=== PATIENT | male | born 1955 | race Hispanic/Latino ===

== ENCOUNTER 2019-08-13 10:27 | Outpatient (CLI) | payer BC, MEDICARE, SELFPAY ==
[2019-08-13 11:07] LABS: Basophils Percent Auto 0.7 % (0.2-1.2); Eosinophils Absolute Auto 0.2 K/mm3 (0-0.3); Eosinophils Percent Auto 2.6 % (0-4.4); Hematocrit 42.3 % (42.0-52.0); Hemoglobin 13.8 g/dL (14.0-18.0); Immature Granulocyte Absolute 0.01 K/mm3 (0.00-0.031); Immature Granulocyte Percent A 0.2 % (0-0.5); Lymphocytes Absolute Auto 1.32 K/mm3 (0.9-3.2); Lymphocytes Percent Auto 21.5 % (18.3-44.2); Mean Corpuscular HGB Conc 32.6 g/dl (32-36); Mean Corpuscular Hemoglobin 29.1 pg (26-34); Mean Corpuscular Volume 89.2 fl (80-100); Mean Platelet Volume 9.1 fl (7.4-10.4); Monocytes Absolute Auto 0.5 K/mm3 (0.1-0.6); Monocytes Percent Auto 7.3 % (2.6-8.5); Neutrophils Absolute Auto 4.2 K/mm3 (1.3-6.7); Neutrophils Percent Auto 67.7 % (45.5-73.1); Platelet Count Result 232 k/mm3 (150-375); Red Blood Count 4.74 M/mm3 (4.6-6.20); Red Cell Distribution Width 13.3 % (11.5-14.5); White Blood Count 6.1 K/mm3 (4.5-10.0)
[2019-08-13 11:19] LABS: Hemoglobin A1C 5.4 % (<5.7)
[2019-08-13 11:29] LABS: Alanine Aminotransferase 26 U/L (4-50); Albumin Level 4.1 g/dL (3.5-5.1); Alkaline Phosphatase 69 U/L (38-126); Aspartate Amino Transferase 24 U/L (17-59); Bilirubin,Total 0.7 mg/dL (0.2-1.3); Blood Urea Nitrogen 12 mg/dL (9-20); Calcium 8.9 mg/dL (8.4-10.2); Carbon Dioxide 25 mmol/L (22-30); Chloride 106 mmol/L (98-107); Cholesterol 195 mg/dL (0-200); Estimated Glomerular Filt Rate > 60; Glucose 100 mg/dL (75-110); HDL Direct 46 mg/dL; Potassium 4.5 mmol/L (3.4-5.0); Sodium 137 mmol/L (137-145); Triglycerides 86 mg/dL (<150)
[2019-08-13 11:40] LABS: LDL Cholesterol Direct 114 mg/dL
[2019-08-13 11:51] LABS: Add Urine Microscopic? NO; Appearance Urine Clear (Clear); Bilirubin Urine Negative (Negative); Blood Urine Negative (Negative); Color Urine Colorless (Yellow); Glucose Urine UA Negative (Negative); Ketones Urine Negative (Negative); Leukocyte Esterase Ur Negative LEU/UL (Negative); Nitrate Urine Negative (Negative); Protein Urine Negative (Negative); Specific Grav Ur 1.005 (1.001-1.035); Urobilinogen Urine Negative mg/dL (<2.0)
[2019-08-13 11:59] LABS: Prostate Specific Antigen 1.1 ng/mL (< OR = 4.0)
[2019-08-15 14:02] LABS: Myoglobin, Urine <27 mcg/L (<28)
== END 2019-08-13 10:28 | disposition home or self-care (01) ==
PROVIDERS: PCP Internal Medicine; Visit Provider Internal Medicine
DX: R31.9 Hematuria, unspecified (principal); Z12.5 Encounter for screening for malignant neoplasm of prostate; Z79.899 Other long term (current) drug therapy
CPT/HCPCS: 36415; 80053; 80061; 81003; 83036; 83874; 84153; 84443; 85025; G0103

== ENCOUNTER 2019-08-19 13:38 | Outpatient (CLI) | payer BC, MEDICARE, SELFPAY ==
--- NOTE | ~2019-08-19 | CT_ITS ---
EXAMINATION: CT abdomen pelvis wo/w con DATE: 08/19/2019 14:35 INDICATION: Suprapubic tenderness, possible bladder mass TECHNIQUE: Computed tomography (CT) of the abdomen and pelvis was performed without intravenous contr ast. CT of the abdomen and pelvis was then performed with a total of 130 mL Omnipaque 350 intravenous contrast using a double-bolus technique for simultaneous opacification of the renal parenchyma and r enal collecting system. The dose-length product (DLP) was 2658.35 mGy-cm. Automated exposure control and iterative reconstruction technique were employed. COMPARISON: 12/26/2005 FINDINGS: The lung bases are clear. The heart size is normal. Cysts of the left hepatic lobe measure up to 9 mm. There is a small sliding hiatal hernia. The spleen, pancreas, gallbladder, and adrenal gl ands are normal. Cysts of the kidneys measure up to 1.3 cm on the right. No stones are identified in the kidneys, ureters, or bladder. There is no hydronephrosis or hydroureter. No suspicious renal or u rothelial lesion is identified. There is chronic mild right inguinal lymphadenopathy without signific ant interval change. There are bilateral inguinal hernias containing fat. There is no free intraperit rodriguez gas or evidence of bowel obstruction. There is mild lumbar spondylosis. Old right-sided rib fra ctures are noted. IMPRESSION: 1. No CT correlate for the patient's symptoms. No suspicious renal or urothelial lesion identified. 2. Bilateral inguinal hernias containing fat. 3. Mild chronic right inguinal lymphadenopathy without significant change of unclear significance. Reviewed, dictated and finalized at location A. IMPRESSION: 1. No CT correlate for the patient's symptoms. No suspicious renal or urothelia l lesion identified. 2. Bilateral inguinal hernias containing fat. 3. Mild chronic right inguinal lymphadenopathy without significant change of un clear significance.
--- NOTE | ~2019-08-19 | CT_ITS ---
EXAMINATION: CT lung screening DATE: 08/19/2019 14:35 INDICATION: Personal history of tobacco dependence, current smoker with 40 pack year history TECHNIQUE: Computed tomography (CT) of the chest was performed without intravenous contrast. The dose -length product (DLP) was 197.66 mGy-cm. Automated exposure control and iterative reconstruction tech Telecardiaque were employed. COMPARISON: 09/18/2011 FINDINGS: There is mild emphysema. No suspicious pulmonary nodules are identified. There is a chronic fissural lymph node in the minor fissure. There is no pleural effusion or pneumothorax. No pathologi leonora enlarged thoracic lymph nodes are identified. The heart size is normal. There is mild thoracic spondylosis. IMPRESSION: 1. Lung-RADS category 2: Benign appearance or behavior. Continue annual screening with noncontrast lo w-dose chest CT in 12 months. Reviewed, dictated and finalized at location A. IMPRESSION: 1. Lung-RADS category 2: Benign appearance or behavior. Continue annual screeni ng with noncontrast low-dose chest CT in 12 months.
== END 2019-08-19 13:39 | disposition home or self-care (01) ==
PROVIDERS: PCP Internal Medicine; Visit Provider Internal Medicine
DX: R31.9 Hematuria, unspecified (principal); Z87.891 Personal history of nicotine dependence; K40.20 Bilateral inguinal hernia, without obstruction or gangrene, not specified as recurrent
CPT/HCPCS: 74178; G0297; Q9967

== ENCOUNTER 2019-10-28 15:13 | Outpatient (CLI) | payer BC, MEDICARE, SELFPAY ==
--- NOTE | ~2019-10-28 | XR_ITS ---
EXAMINATION: XR shoulder LT min 2V DATE: 10/28/2019 15:45 INDICATION: Left shoulder pain TECHNIQUE: AP internally and externally rotated, AP oblique externally rotated and transscapular Y vi ews of the left shoulder were obtained. COMPARISON: None FINDINGS: Normal alignment. No fracture.Mild to moderate osteoarthritis at the glenohumeral joint with nonunif orm joint space narrowing and small marginal osteophytes about the humeral head and glenoid. There is also moderate acromioclavicular osteoarthritis. Suggestion of pseudoarthrosis formation between the coracoid process and the clavicle in the region of the coracoclavicular ligament. Soft tissues are un remarkable. The visualized portions of the lungs are clear. IMPRESSION: Moderate acromioclavicular and mild to moderate glenohumeral osteoarthritis. Reviewed, dictated and finalized at location A.
== END 2019-10-28 15:14 | disposition home or self-care (01) ==
PROVIDERS: PCP Internal Medicine; Visit Provider Nurse Practitioner Adult Health
DX: M19.012 Primary osteoarthritis, left shoulder (principal)
CPT/HCPCS: 73030

== ENCOUNTER 2020-03-29 01:44 | Outpatient (CLI) | payer BC, MEDICARE, SELFPAY ==
[2020-03-29 21:22] LABS: SARS-CoV-2 RNA PCR Negative
== END 2020-03-29 01:45 | disposition home or self-care (01) ==
LOC: ANHCOVIDDT 01:45
PROVIDERS: PCP Internal Medicine; Visit Provider Internal Medicine Gastroenterology
DX: Z01.812 Encounter for preprocedural laboratory examination (principal); Z20.828 Contact with and (suspected) exposure to other viral communicable diseases
CPT/HCPCS: 87635; C9803; U0003

== ENCOUNTER 2020-04-01 01:16 | Day surgery (SDC) | payer BC, MEDICARE, SELFPAY ==
[2020-03-26 13:27] VITALS: BMI 35.9
[2020-04-01 07:20] VITALS: BP 120/78; PULSE 66; RESP 20; TEMP 35.9; O2SAT 99; BMI 35.2
[2020-04-01] MEDS: LACTATED RINGERS 1,000 ML 150 ML IV CONT (07:24)
--- NOTE | 2020-04-01 07:28 | PM.IMHP ---
H&P: HPI History of Present Illness Date/Time: 04/01/20 07:28 Chief complaint: neoplasm screening Narrative: Reason for visit is colonoscopy. This very pleasant gentleman seen in consultation at request of the primary physician. Impression: Screening and surveillance colonoscopy. Patient's history adenomatous colon polyps. GERD with history of gastric ulcer disease. Recommendation: Colonoscopy. History: This very pleasant gentleman is negative GI review systems. He has a history adenomatous colon polyps. He is here for screening and surveillance colonoscopy. He has a history of reflux disease and gastric ulcer disease in the past. He is here for EGD. The patient does have a history of shortness of breath, dyspnea exertion and wheezing. He has a diagnosis of COPD. He recently discontinued smoking. Physical examination: General: very pleasant patient in no acute distress. HEENT: Head was normocephalic sclerae is clear mouth without masses neck was supple. Heart: Rate rhythm regular without S3 or S4. Lungs: Decreased breath sounds bilaterally. Abdomen: Soft with no guarding or rigidity. Bowel sounds were active. Neurologic: Cranial nerves 2 through 12 intact. No focal defects. No clonus. Musculoskeletal system: Revealed no joint tenderness or swelling no muscle atrophy. Extremities: Reveal no significant edema. Skin: Warm and dry with normal turgor. Mental status: intact. Patient is alert and oriented. Review of Systems Review of Systems: All systems reviewed & are unremarkable except as noted in HPI and below PMFSH Past Medical History Medical History (Updated 04/01/20 @ 07:27 by Ernst Watson DO) Adenomatous colon polyp COPD (chronic obstructive pulmonary disease) Gastric ulcer GERD (gastroesophageal reflux disease) Obesity Tobacco abuse Vitamin D deficiency Surgical History Surgical History (Updated 04/01/20 @ 07:27 by Ernst Watson DO) H/O colonoscopy H/O esophagogastroduodenoscopy Family History Family History Mother Family history of diabetes mellitus in first degree relative Social History Social History Smoking status: Current every day smoker Tobacco type: cigarettes Second hand tobacco smoke exposure: No Smoking end date: 05/14/13 Additional smoking assessment comments: CURRENTLY ON CHANTIX -DOWN TO 1 PACK FOR 2 WEEKS Alcohol intake: former Alcohol use details: AA FOR PAST 7 YEARS Substance use: unknown Living arrangements: with family Spiritual care concerns: No Meds Home Medications and Allergies Home Medications Medication Instructions Recorded Confirmed Type rosuvastatin 5 mg tablet 5 mg PO DAILY #30 tablet 02/16/20 03/26/20 Rx umeclidinium 62.5 mcg-vilanterol 1 inhalation INHALATION DAILY #60 02/16/20 03/26/20 Rx 25 mcg/actuation powdr for each inhalation oxycodone-acetaminophen 5 mg-325 1 tablet PO Q6H PRN 03/02/20 03/26/20 History mg tablet varenicline 1 mg tablet 1 mg PO BID #56 tablet 03/09/20 03/26/20 Rx nabumetone 500 mg PO DAILY 03/26/20 03/26/20 History Allergies Allergy/AdvReac Type Severity Reaction Status Date / Time No Known Allergies Allergy Verified 03/26/20 13:26 Vital Signs Vital Signs - 24 hr 04/01/20 07:20 Temperature 35.9 C L Pulse Rate 66 Respiratory Rate 20 Blood Pressure 120/78 Pulse Oximetry 99
--- NOTE | 2020-04-01 07:48 | WPDANESEPPF ---
Anes - Initial Pre Proc Eval Procedure: Operation Date: 04/01/20 08:30 Proposed Procedures p Screening Colonoscopy - Ernst Watson DO Date/Time: 04/01/20 07:48 Surgeon: Ernst Watson DO Pre Op Diagnosis: neoplasm screening Patient Data Age: 64 Gender: M Height: 5 ft 9 in Weight: 108 kg Last Vital Signs Temp 96.7 F L 04/01/20 07:20 Pulse 66 04/01/20 07:20 Resp 20 04/01/20 07:20 BP 120/78 04/01/20 07:20 Pulse Ox 99 04/01/20 07:20 Allergies Allergy/AdvReac Type Severity Reaction Status Date / Time No Known Allergies Allergy Verified 03/26/20 13:26 Home Medications Medication Instructions Recorded Confirmed Type rosuvastatin 5 mg tablet 5 mg PO DAILY #30 tablet 02/16/20 03/26/20 Rx umeclidinium 62.5 mcg-vilanterol 1 inhalation INHALATION DAILY #60 02/16/20 03/26/20 Rx 25 mcg/actuation powdr for each inhalation oxycodone-acetaminophen 5 mg-325 1 tablet PO Q6H PRN 03/02/20 03/26/20 History mg tablet varenicline 1 mg tablet 1 mg PO BID #56 tablet 03/09/20 03/26/20 Rx nabumetone 500 mg PO DAILY 03/26/20 03/26/20 History Patient hx anesthesia problems: none Family hx anesthesia problems: none PMFSH Past Medical History Medical History (Updated 04/01/20 @ 07:27 by Ernst Watson DO) Adenomatous colon polyp COPD (chronic obstructive pulmonary disease) Gastric ulcer GERD (gastroesophageal reflux disease) Obesity Tobacco abuse Vitamin D deficiency Surgical History Surgical History (Updated 04/01/20 @ 07:27 by Ernst Watson DO) H/O colonoscopy H/O esophagogastroduodenoscopy Family History Family History Mother Family history of diabetes mellitus in first degree relative Social History Social History Smoking status: Current every day smoker Tobacco type: cigarettes Second hand tobacco smoke exposure: No Smoking end date: 05/14/13 Additional smoking assessment comments: CURRENTLY ON CHANTIX -DOWN TO 1 PACK FOR 2 WEEKS Alcohol intake: former Alcohol use details: AA FOR PAST 7 YEARS Substance use: unknown Living arrangements: with family Spiritual care concerns: No Anes - Eval Final PreProcedure Day of Procedure 04/01/20 07:48 Patient weight: obese Heart: regular rate and rhythm Lungs: clear to auscultation Airway: Mallampati scale class II Neurological: alert and oriented Last oral intake: >/= 8 hours ASA classification: III Emergent: no Anesthetic plan: proceed Anesthesia type and monitoring: general GIVS and standard monitoring Informed Consent: The patient's anesthetic plan and its attendant risks and benefits were discussed with the patient/family/POA. Questions were solicited and answers provided to the satisfaction of the patient/family/POA.
[2020-04-01 08:28] VITALS: BP 84/50; PULSE 61; RESP 17; O2SAT 100
[2020-04-01 08:38] VITALS: BP 111/71; PULSE 65; RESP 20; O2SAT 97
[2020-04-01 08:48] VITALS: BP 110/77; PULSE 62; RESP 20; O2SAT 98
== END 2020-04-01 08:57 | disposition home or self-care (01) ==
PROVIDERS: PCP Internal Medicine; Visit Provider Internal Medicine Gastroenterology
PROC: 0DJD8ZZ Inspection of Lower Intestinal Tract, Via Natural or Artificial Opening Endoscopic (ICD-10-PCS; CPT 45378; principal; 2020-04-01 08:30)
DX: Z12.11 Encounter for screening for malignant neoplasm of colon (principal); D12.2 Benign neoplasm of ascending colon; K64.8 Other hemorrhoids; J44.9 Chronic obstructive pulmonary disease, unspecified; K21.9 Gastro-esophageal reflux disease without esophagitis; E55.9 Vitamin D deficiency, unspecified; F17.210 Nicotine dependence, cigarettes, uncomplicated; E66.9 Obesity, unspecified; Z68.35 Body mass index [BMI] 35.0-35.9, adult
CPT/HCPCS: 45385; 88305; J2704; J7120

== ENCOUNTER 2020-05-18 09:28 | Outpatient (CLI) | payer MEDICARE, BC, SELFPAY ==
--- NOTE | ~2020-05-18 | US_ITS ---
US scrotum doppler INDICATION: Epididymitis. Scrotal swelling. TECHNIQUE: Testicular sonogram utilizing grayscale and color Doppler FINDINGS: The testes are normal in size and appearance. No focal lesions are seen. The right testes measures 4.5 x 3.1 x 2 cm centimeters, and the left testis measures 3.7 x 3.2 x 2.1 cm cm. There is n ormal vascular flow to both testes. There is a small left epididymal cyst. There is a small left hydrocele. There is scrotal wall edema. IMPRESSION: 1. Scrotal wall edema. 2: Small left hydrocele. Reviewed, dictated and finalized at location A. ER LIQUEFIER
== END 2020-05-18 09:29 | disposition home or self-care (01) ==
PROVIDERS: PCP Internal Medicine; Visit Provider Internal Medicine
DX: N45.1 Epididymitis (principal); N43.3 Hydrocele, unspecified
CPT/HCPCS: 76870; 93976

== ENCOUNTER 2020-07-21 16:11 | Outpatient (CLI) | payer MEDICARE, SELFPAY | END 2020-07-21 16:12 | disposition home or self-care (01) | LOC: ANHCOVIDVC 16:11 | PROVIDERS: PCP Internal Medicine | DX: Z23 Encounter for immunization (principal) | CPT/HCPCS: 0001A; 91300 ==

== ENCOUNTER 2020-08-11 14:52 | Outpatient (CLI) | payer BC, SELFPAY | END 2020-08-11 14:53 | disposition home or self-care (01) | LOC: ANHCOVIDVC 14:53 | PROVIDERS: PCP Internal Medicine | DX: Z23 Encounter for immunization (principal) | CPT/HCPCS: 0002A; 91300 ==

== ENCOUNTER 2020-09-20 14:44 | Outpatient (CLI) | payer BC, MEDICARE, SELFPAY ==
--- NOTE | ~2020-09-20 | CT_ITS ---
EXAMINATION:CT lung screening DATE: 09/20/2020 15:00 INDICATION: Personal history of tobacco dependence. Current smoker with 40 pack year history. TECHNIQUE: Computed tomography (CT) of the chest was performed without intravenous contrast. Automate d exposure control and iterative reconstruction technique were employed. The dose-length product (DLP ) was 270.67 mGy-cm. COMPARISON: Chest CT 08/19/2019 FINDINGS: There is mild atelectasis bilaterally. There are a few scattered nodules measuring up to 3 mm. There is a stable 6 mm nodule at the minor fissure. No pleural effusion. The heart size is normal . No pericardial effusion. There are no pathologically enlarged lymph nodes. There is mild bilateral gynecomastia. There are cysts in the liver measuring up to 12 mm. There are old right rib fractures. There is moderate thoracic spondylosis. IMPRESSION: 1. Lung-RADS category 2: Benign appearance or behavior. Continue annual screening with noncontrast lo w-dose chest CT in 12 months. Reviewed, dictated and finalized at location B. IMPRESSION: 1. Lung-RADS category 2: Benign appearance or behavior. Continue annual screeni ng with noncontrast low-dose chest CT in 12 months.
== END 2020-09-20 14:45 | disposition home or self-care (01) ==
PROVIDERS: PCP Internal Medicine; Visit Provider Internal Medicine
DX: Z12.2 Encounter for screening for malignant neoplasm of respiratory organs (principal); Z87.891 Personal history of nicotine dependence
CPT/HCPCS: 71271

== ENCOUNTER 2021-02-14 07:24 | Emergency (ER) | payer BC, MEDICARE, SELFPAY ==
[2021-02-14] VITALS (12 sets, daily range): BP systolic 95–118; BP diastolic 53–66; PULSE 55–64; RESP 13–21; TEMP 36.7; O2SAT 97–100
--- NOTE | ~2021-02-14 | XR_ITS ---
XR chest 2V DATE: 02/14/2021 07:46 INDICATION: Chest pain, chest pressure, shortness of breath TECHNIQUE: PA and lateral views COMPARISON: 09/20/2020 CT lung screening examinations FINDINGS: Moderate bilateral pulmonary hyperinflation. No pulmonary infiltrate or consolidation, pleu ral effusion or pulmonary vascular congestion or pneumothorax is detected. Normal heart size. There is aortic tortuosity. Degenerative change of the cervical and thoracic spine . IMPRESSION: Moderate hyperinflation; no active cardiopulmonary disease Reviewed, dictated and finalized at location A.
--- NOTE | 2021-02-14 07:28 | ECG_ITS ---
Measurements Intervals [place] Rate: 60 P: 72 WV: 162 QRS: 72 QRSD: 89 T: 70 QT: 378 QTc: 379 Interpretive Statements SINUS RHYTHM NORMAL ECG Electronically Signed On 02-14-2021 15:26:20 CDT by Gurvinder Nguyen D.O.
[2021-02-14 07:47] LABS: Basophils Percent Auto 0.6 % (0.2-1.2); Eosinophils Absolute Auto 0.4 K/mm3 (0-0.3); Eosinophils Percent Auto 6.8 % (0-4.4); Hematocrit 34.6 % (42.0-52.0); Hemoglobin 11.5 g/dL (14.0-18.0); Immature Granulocyte Absolute 0.01 K/mm3 (0.00-0.031); Immature Granulocyte Percent A 0.2 % (0-0.5); Lymphocytes Absolute Auto 1.11 K/mm3 (0.9-3.2); Lymphocytes Percent Auto 17.5 % (18.3-44.2); Mean Corpuscular HGB Conc 33.2 g/dl (32-36); Mean Corpuscular Hemoglobin 30.6 pg (26-34); Mean Platelet Volume 9.2 fl (7.4-10.4); Monocytes Absolute Auto 0.7 K/mm3 (0.1-0.6); Monocytes Percent Auto 10.3 % (2.6-8.5); Neutrophils Absolute Auto 4.1 K/mm3 (1.3-6.7); Neutrophils Percent Auto 64.6 % (45.5-73.1); Platelet Count Result 243 k/mm3 (150-375); Red Blood Count 3.76 M/mm3 (4.6-6.20); White Blood Count 6.3 K/mm3 (4.5-10.0)
[2021-02-14] MEDS: ASPIRIN 81 MG CHEWABLE TABLET 324 MG PO (07:49)
--- NOTE | 2021-02-14 07:55 | PC.NURSE ---
attempted IV x 1. pt refusing 2nd attempt. wants to wait until it's an emergency .
[2021-02-14 07:56] LABS: Anion Gap 7 mmol/L (8-16); Blood Urea Nitrogen 24 mg/dL (9-20); Calcium 9.6 mg/dL (8.4-10.2); Carbon Dioxide 24 mmol/L (22-30); Chloride 106 mmol/L (98-107); Estimated CRCL calculation 71 ml/min; Estimated Glomerular Filt Rate > 60; Glucose 106 mg/dL (65-110); Sodium 137 mmol/L (137-145)
[2021-02-14 08:01] LABS: Prothrombin Time 13.5 Seconds (11.1-14.7)
[2021-02-14 08:02] LABS: Partial Thromboplastin Time 27.6 SECONDS (22.3-36.8)
[2021-02-14 08:07] LABS: Troponin I < 0.012 ng/mL (0.000-0.034)
--- NOTE | 2021-02-14 09:49 | ED.GENADULT ---
HPI - General Adult General Chief complaint: Chest Pain Stated complaint: upper abd pain Time Seen by Provider: 02/14/21 08:19 Source: patient History of Present Illness HPI narrative: Patient is a 65 y/o male complaining of chest pain starting yesterday. He states that his pain located on both side in lower chest area. He describes his pain as a cramp and feels like a muscle spasm. He rates his pain as 4/10. There is no pain radiation. There is no alleviating or exacerbating factor. He has chronic unchanged SOB which he attributed to smoking. Related Data Home Medications Medication Instructions Recorded Confirmed oxycodone-acetaminophen 5 mg-325 1 tablet PO Q6H PRN 03/02/20 09/06/20 mg tablet cholecalciferol (vitamin D3) 50 50 mcg PO DAILY 12/03/20 mcg (2,000 unit) capsule Allergies Allergy/AdvReac Type Severity Reaction Status Date / Time No Known Allergies Allergy Verified 02/14/21 07:50 Review of Systems Constitutional: Constitutional: Denies chills, Denies fever(s), Denies headache(s) and Denies weakness Eyes: Eyes: Denies blurry vision ENT: Denies headache(s) and Denies neck pain Cardiovascular: Cardiovascular: Reports chest pain and Reports dyspnea Respiratory: Respiratory: Denies cough and Reports dyspnea Gastrointestinal: Gastrointestinal: Denies abdominal pain, Denies diarrhea, Denies nausea and Denies vomiting Genitourinary: Genitourinary: Denies hematuria and Denies dysuria Musculoskeletal: Musculoskeletal: Denies back pain and Denies neck pain Neurologic: Denies headache(s) and Denies weakness [facility] Past Medical History Medical History Adenomatous colon polyp Alcoholism COPD (chronic obstructive pulmonary disease) Gastric ulcer GERD (gastroesophageal reflux disease) Nicotine dependence, unspecified, uncomplicated Obesity Osteoarthritis of left shoulder Tobacco abuse Vitamin D deficiency Surgical History Surgical History H/O colonoscopy H/O esophagogastroduodenoscopy Family History Family History Mother Family history of diabetes mellitus in first degree relative Social History Social History Tobacco type: cigarettes Second hand tobacco smoke exposure: No Smoking end date: 05/14/13 Additional smoking assessment comments: CURRENTLY ON CHANTIX -DOWN TO 1 PACK FOR 2 WEEKS Alcohol intake: never Alcohol use details: AA FOR PAST 7 YEARS Substance use: unknown Spiritual care concerns: No Exam Const: General: no acute distress and well developed Orientation/consciousness: oriented to person, oriented to place, oriented to time and patient oriented x3 HENMT: Head: normocephalic Ears: external ears normal General nose exam: Normal external nose present Eyes: General: appearance normal, both eyes and all related structures Conjunctivae: conjunctivae normal Neck: Neck: normal visual inspection and full ROM Chest: Chest palpation & inspection: normal inspection of the chest and no tenderness Resp: Effort & Inspection: normal respiratory effort Auscultation: clear to auscultation bilaterally Cardio: Rate: regular rate Rhythm: regular rhythm GI: GI Palp: No abdominal tenderness and Yes Soft to palpation Skin: General skin exam: normal color and turgor normal Neuro: General: oriented to person, oriented to place, oriented to time and patient oriented x3 Cognition (Neuro): normal cognition Extrem: General: normal to inspection, full ROM and no pedal edema Psych: Appearance: grossly normal Mental Status: mental status grossly normal Affect: normal affect Course Reevaluation(s) Reevaluation #1: Patient does not want to do repeat Troponin and CT scan. He is aware of the risks of undiagnosed conditions, which may lead to permanent disability an
--- NOTE | 2021-02-14 10:13 | PC.NURSE ---
Attempted iv x1, pt upset that he was stuck x3 when he got here. Pt noted to be difficult stick. Pt refusing ct scan and troponin at this time. EPD Informed and at bedside to inform pt that he will need to sign out ama.
--- NOTE | 2021-02-14 10:15 | PC.NURSE ---
After speaking with provider, pt still wanting to sign out ama.
== END 2021-02-14 10:20 | disposition left against medical advice (07) ==
PROVIDERS: Emergency Provider Emergency Medicine; PCP Internal Medicine
DX: R07.9 Chest pain, unspecified (principal); J44.9 Chronic obstructive pulmonary disease, unspecified; K21.9 Gastro-esophageal reflux disease without esophagitis; E66.9 Obesity, unspecified; Z68.33 Body mass index [BMI] 33.0-33.9, adult; M19.012 Primary osteoarthritis, left shoulder; E55.9 Vitamin D deficiency, unspecified; Z86.010 Personal history of colon polyps; F17.210 Nicotine dependence, cigarettes, uncomplicated
CPT/HCPCS: 36415; 71046; 80048; 84484; 85025; 85380; 85610; 85730; 93005; 99284; A9270

== ENCOUNTER 2021-05-18 19:57 | Emergency (ER) | payer BC, MEDICARE, SELFPAY ==
[2021-05-18 20:10] VITALS: BP 142/57; PULSE 70; RESP 16; TEMP 36.5; O2SAT 99
--- NOTE | 2021-05-18 20:26 | ED.SKABFB ---
HPI - Skin/Abscess/Foreign Bdy General Chief complaint: Skin/Abscess/Foreign Body Stated complaint: cyst Time Seen by Provider: 05/18/21 20:26 Source: patient Mode of arrival: ambulatory Limitations: no limitations History of Present Illness HPI narrative: Roderick Dawkins is a 65 yo male with a PMH of GERD, HTN, COPD ,alcohol abuse, who comes with a boil that is recurrent in the same area he is going to call his primary care physician in the morning to get a referral to [facility] to endocrinology because he is already using Hibiclens and trying to other lifestyle things to avoid these boils. Has had them for 40 years it is nonfluctuant at this point but is starting to be painful he is had since before . He states the Keflex works very well for him Related Data Home Medications Medication Instructions Recorded Confirmed oxycodone-acetaminophen 5 mg-325 1 tablet PO Q6H PRN 03/02/20 03/14/21 mg tablet famotidine 20 mg tablet 20 mg PO BID tablet 03/14/21 03/14/21 Allergies Allergy/AdvReac Type Severity Reaction Status Date / Time No Known Allergies Allergy Verified 03/14/21 08:26 Review of Systems Review of Systems: CONSTITUTIONAL: Denies fever, chills, sweats. EYES: Denies visual changes, redness, discharge. ENT: Denies rhinorrhea, congestion, sore throat, otalgia. CARDIOVASCULAR: Denies chest pain, palpitations, edema. RESPIRATORY: Denies dyspnea, wheezing, cough GASTROINTESTINAL: Denies abdominal pain, nausea, vomiting, diarrhea. GENITOURINARY: Denies dysuria, hematuria, abnormal discharge SKIN: Denies rash or itching. Has boil in the upper right inner thigh NEUROLOGIC: Denies numbness, or focal weakness. PSYCHIATRIC: Denies anxiety or depression. [facility] Past Medical History Medical History Adenomatous colon polyp Alcoholism COPD (chronic obstructive pulmonary disease) Gastric ulcer GERD (gastroesophageal reflux disease) Nicotine dependence, unspecified, uncomplicated Obesity Osteoarthritis of left shoulder Tobacco abuse Vitamin D deficiency Surgical History Surgical History H/O colonoscopy H/O esophagogastroduodenoscopy Family History Family History Mother Family history of diabetes mellitus in first degree relative Social History Social History Smoking status: Current every day smoker Tobacco type: cigarettes Second hand tobacco smoke exposure: No Smoking end date: 05/14/13 Additional smoking assessment comments: CURRENTLY ON CHANTIX -DOWN TO 1 PACK FOR 2 WEEKS Alcohol intake: never Alcohol use details: AA FOR PAST 7 YEARS Substance use: never Substance use type: does not use Spiritual care concerns: No Comments At time of signature, I agree with nursing past medical, surgical, social and family history. There is no relevant family history pertinent to the presenting complaint. Exam Narrative: GENERAL: This is a well-nourished, well-developed patient, in mild distress. HEAD: normocephalic, atraumatic. EYES: . Sclera clear/white. Vision is grossly intact. EARS: External ears normal, auditory canals clear and without drainage, TMs normal without perforation. Hearing grossly intact. NOSE: External nose normal without nasal discharge, nares without redness, no rhinorrhea. THROAT: Mucous membranes moist, NECK: Neck supple, CARDIOVASCULAR: Regular rate and rhythm without murmurs, gallops, or rubs. RESPIRATORY: Clear to auscultation. Breath sounds equal bilaterally. No wheezes, rales, or rhonchi. GASTROINTESTINAL: Abdomen soft, non-tender, SKIN: warm, intact with boil in the right upper inner thigh, recurrent NEURO: awake, alert, and oriented to person, place and time. There were no obvious focal neurologic abnormalities. Steady gait EXTREMITIES: Nor
== END 2021-05-18 20:40 | disposition home or self-care (01) ==
PROVIDERS: Emergency Provider Nurse Practitioner; PCP Internal Medicine
DX: L73.9 Follicular disorder, unspecified (principal); F17.210 Nicotine dependence, cigarettes, uncomplicated; J44.9 Chronic obstructive pulmonary disease, unspecified; K21.9 Gastro-esophageal reflux disease without esophagitis; E66.9 Obesity, unspecified; Z68.34 Body mass index [BMI] 34.0-34.9, adult; M19.012 Primary osteoarthritis, left shoulder; E55.9 Vitamin D deficiency, unspecified; I10 Essential (primary) hypertension
CPT/HCPCS: 99213; G0463

== ENCOUNTER 2021-07-22 13:43 | Outpatient (CLI) | payer BC, MEDICARE, SELFPAY ==
--- NOTE | ~2021-07-22 | MR_ITS ---
EXAMINATION: MR MRCP wo/w con/w 3D wo ind DATE: 07/22/2021 15:17 INDICATION: Abdominal pain and abnormal lipase. TECHNIQUE: Magnetic resonance imaging (MRI) of the abdomen was performed . without and with 20 mL Mul tihance intravenous contrast. Sequences included coronal T2-weighted SS-FSE, coronal T2-weighted FS S S-FSE, coronal T2-weighted FS FIESTA, axial T2-weighted FS FIESTA, axial T2-weighted FIESTA, sagittal T2-weighted SS-FSE, axial T1-weighted dual-echo FSPGR, axial T2-weighted SS-FSE, axial T1-weighted L RISHI, axial T2-weighted STIR FSE. Thick-slab T2-weighted FRFSE-XL images were obtained for magnetic re sonance cholangiopancreatography (MRCP). Rotating maximum intensity projection 3-D reconstructions of the volumetric data were created by the technologist. Postcontrast sequences included a time course of axial T1-weighted LAVA. COMPARISON: CT abdomen and pelvis dated 08/29/2019 FINDINGS: ABDOMEN MRI: Heart size is normal. No pericardial or pleural effusion. 3 well-defined T2 hyperintense nonenhancing cysts in the left hepatic lobe, the largest measuring 1.1 cm. Liver is otherwise normal . Gallbladder is normal with no cholelithiasis. Spleen, pancreas and bilateral adrenal glands are nor mal. There are additional small T2 hyperintense nonenhancing renal cysts. 2 12 mm left kidney and 10 mm in the right kidney. Visualized portions of the bowels are unremarkable. No pathologically enlarge d abdominal lymphadenopathy. Mild lumbar dextrocurvature with moderate spondylosis. ABDOMEN MRCP: No intrahepatic biliary ductal dilation. Common hepatic duct measures 6 mm and common bile duct 5 mm in maximal diameters. No evident obstructing stones, masses or strictures. Main pancreatic duct is no rmal measuring up to 2.5 mm in maximal diameter the head of the pancreas. IMPRESSION: 1. A few small hepatic and bilateral renal cysts. Otherwise unremarkable MRI/MRCP with no cholelithia sis or biliary ductal dilation. Reviewed, dictated and finalized at location A. H ASSEMBLER IMPRESSION: 1. A few small hepatic and bilateral renal cysts. Otherwise unremarkable MRI/MR CP with no cholelithiasis or biliary ductal dilation.
[2021-07-22 14:12] LABS: Estimated Glomerular Filt Rate > 60
== END 2021-07-22 13:44 | disposition home or self-care (01) ==
PROVIDERS: PCP Internal Medicine; Visit Provider Internal Medicine Gastroenterology
DX: R10.84 Generalized abdominal pain (principal); R74.8 Abnormal levels of other serum enzymes; R93.3 Abnormal findings on diagnostic imaging of other parts of digestive tract; N28.1 Cyst of kidney, acquired; K76.89 Other specified diseases of liver
CPT/HCPCS: 74183; 76376; A9577

== ENCOUNTER 2021-12-04 09:22 | Emergency (ER) | payer BC, MEDICARE, SELFPAY ==
[2021-12-04 09:32] VITALS: BP 158/94; PULSE 71; RESP 18; TEMP 36.9; O2SAT 98
--- NOTE | 2021-12-04 09:58 | ED.BACK ---
HPI - Back Pain/Injury General Chief Complaint: Back Pain/Injury Stated Complaint: L BACK PAIN, L LEG NUMBNESS Time Seen by Provider: 12/04/21 09:31 History of Present Illness HPI Narrative: 65-year-old male presents with left lower back pain that radiates to his left leg with some mild numbness/tingling sensation to the leg, denies any recent fall, injury or twisting, he did recently retire and get a motorcycle. No issues with voiding, no saddle anesthesia, no fevers/chills or night sweats. Has tried taking aleve and ibuprofen with only mild improvement in pain; also oxycodone at home. Related Data Home Medications Medication Instructions Recorded Confirmed oxycodone-acetaminophen 5 mg-325 1 tablet PO Q6H PRN Pain, Moderate 03/02/20 09/19/21 mg tablet Allergies Allergy/AdvReac Type Severity Reaction Status Date / Time No Known Allergies Allergy Verified 09/19/21 08:10 Review of Systems Review of Systems: CONST: No fever. HEENT: No sore throat C/V: No chest pain RESP: No cough GI: No abdominal pain : No incontinence or retention M/S: Left leg pain SKIN: No rash. NEURO: [No focal weakness] but does endorse some tingling to left leg PSYCH: [No depression] [facility] Past Medical History Medical History Adenomatous colon polyp Alcoholism COPD (chronic obstructive pulmonary disease) Gastric ulcer GERD (gastroesophageal reflux disease) Nicotine dependence, unspecified, uncomplicated Obesity Osteoarthritis of left shoulder Tobacco abuse Vitamin D deficiency Surgical History Surgical History H/O colonoscopy H/O esophagogastroduodenoscopy Family History Family History Mother Family history of diabetes mellitus in first degree relative Social History Social History Tobacco type: cigarettes Second hand tobacco smoke exposure: No Smoking end date: 05/14/13 Additional smoking assessment comments: CURRENTLY ON CHANTIX -DOWN TO 1 PACK FOR 2 WEEKS Alcohol intake: never Alcohol use details: AA FOR PAST 7 YEARS Substance use: never Substance use type: does not use Spiritual care concerns: No Exam Narrative: EXAMINATION OF ORGAN SYSTEMS/BODY AREAS: Constitutional: Vital signs per nursing GENERAL:[No acute distress, non-toxic appearing.] HEAD: Normal with no signs of head trauma. EYES: EOMI, conjunctiva normal ENT: Hearing grossly intact LUNGS: Nonlabored breathing. HEART: [Regular rate and rhythm] ABD: [Soft], [nontender to palpation] BACK: No midline tenderness EXT: Normal range of motion with recreation of back pain with flexion of left leg SKIN: [No rashes or lesions. no saddle anesthesia NEURO: [Alert and oriented x 3. No gross focal strength deficits; endorses some tingling to left upper leg.] PSYCH: Normal affect Course Vital Signs Vital signs: Vital Signs Temperature 98.5 F 12/04/21 09:32 Pulse Rate 71 12/04/21 09:32 Respiratory Rate 18 12/04/21 09:32 Blood Pressure 158/94 H 12/04/21 09:32 Pulse Oximetry 98 12/04/21 09:32 Oxygen Delivery Room Air 12/04/21 09:32 Temperature 98.5 F 12/04/21 09:32 Pulse Rate 71 12/04/21 09:32 Respiratory Rate 18 12/04/21 09:32 Blood Pressure 158/94 H 12/04/21 09:32 Pulse Oximetry 98 12/04/21 09:32 Oxygen Delivery Room Air 12/04/21 09:32 MDM - Back Pain/Injury MDM Narrative Medical decision making narrative: ED COURSE AND MEDICAL DECISION MAKIN-year-old male with acute back pain. Normal motor exam. Patient able to ambulate. No evidence of acute cord compression, osteomyelitis/discitis or cauda equina without saddle anesthesia, urinary retention/incontinence, fever, history of IV drug use, cancer or immunosuppression. Doubt AAA or aortic dissection without severe pain/discomfort or any neurov
== END 2021-12-04 10:21 | disposition home or self-care (01) ==
PROVIDERS: Emergency Provider Emergency Medicine; PCP Internal Medicine
DX: M54.16 Radiculopathy, lumbar region (principal); J44.9 Chronic obstructive pulmonary disease, unspecified; K21.9 Gastro-esophageal reflux disease without esophagitis; M19.012 Primary osteoarthritis, left shoulder; E55.9 Vitamin D deficiency, unspecified; Z86.010 Personal history of colon polyps; Z87.891 Personal history of nicotine dependence
CPT/HCPCS: 99283

== ENCOUNTER 2021-12-20 16:02 | Outpatient (CLI) | payer BC, MEDICARE, SELFPAY ==
--- NOTE | ~2021-12-20 | MR_ITS ---
EXAMINATION: MR lumbar spine wo con DATE: 12/20/2021 16:30 INDICATION: Lumbar radiculopathy. TECHNIQUE: Magnetic resonance imaging (MRI) of the lumbar spine was performed without intravenous con trast. Sequences included sagittal T2-weighted FSE, sagittal T2-weighted FS FSE, sagittal T1-weighted FSE, and axial T2-weighted FSE. COMPARISON: None FINDINGS: There is 10 degrees dextroscoliosis of lumbar spine. There is 3 mm retrolisthesis of L1 on L2, L2 on L3, and L3 on L4. There is mild chronic anterior wedging of T11-L1 vertebral bodies. There is mildly decreased disc height from L1-L2 through L3-L4 and moderately decreased disc height at L4-L 5. The distal spinal cord signal intensity is normal. The conus medullaris is at T12-L1. The followin g disc levels are specifically discussed: L1-L2: The disc is bulging. There is severe bilateral facet joint osteoarthritis. There is mild bilat eral neural foraminal stenosis. There is mild central canal stenosis. L2-L3: The disc is bulging and has an annular fissure. There is mild bilateral facet joint osteoarthr itis. There is moderate bilateral neural foraminal stenosis. There is mild central canal stenosis. L3-L4: The disc is bulging and has an annular fissure. There is mild lateral facet joint osteoarthrit is. There is moderate bilateral neural foraminal stenosis. There is mild central canal stenosis. L4-L5: The disc is bulging and has an annular fissure. There is severe bilateral facet joint osteoart hritis. There is mild right and moderate left neural foraminal stenosis. There is moderate central ca nal stenosis. There is severe stenosis of left lateral recess. L5-S1: The disc is mildly bulging. There is severe bilateral facet joint osteoarthritis. There is mil d bilateral neural foraminal stenosis. There is no central canal stenosis. IMPRESSION: 1. Moderate lumbar spondylosis. 2. Lumbar dextroscoliosis. Reviewed, dictated and finalized at location A.
== END 2021-12-20 16:03 | disposition home or self-care (01) ==
PROVIDERS: PCP Internal Medicine; Visit Provider Internal Medicine
DX: M54.16 Radiculopathy, lumbar region (principal); M43.06 Spondylolysis, lumbar region
CPT/HCPCS: 72148

== ENCOUNTER 2022-08-24 07:40 | Emergency (ER) | payer BC, MEDICARE, SELFPAY ==
--- NOTE | ~2022-08-24 | XR_ITS ---
Left Shoulder Technique: AP and scapular Y views were obtained. Clinical History: Pain Findings: No fracture or dislocation is seen. Osseous alignment is anatomic. Mild degenerative change at the acromioclavicular joint noted. Glenohumeral joint intact. Soft tissues are unremarkable. Impression: Mild AC joint degenerative change. Reviewed, dictated and finalized at location . Impression: Mild AC joint degenerative change.
[2022-08-24 07:44] VITALS: BP 142/68; PULSE 65; RESP 20; TEMP 36.9; O2SAT 100
--- NOTE | 2022-08-24 08:17 | ED.UPPEXIN ---
HPI - Extremity Injury (Upper) General Chief Complaint: Extremity Injury, Upper Stated Complaint: left shoulder pain Time Seen by Provider: 08/24/22 08:09 Source: patient Mode of arrival: ambulatory History of Present Illness HPI narrative: 66 years old white male complaining of left shoulder pain over 1 year, was seen by many physicians including pain management physician, had last cortisone injection July 2022. He denies any recent new physical activity or trauma. He denies any fever, chills, nausea, vomiting, chest pain or back pain. Worse with any movement, better laying still. Nothing different than 1 month ago. Currently on oxycodone for shoulder and right knee pain. Related Data Home Medications Medication Instructions Recorded Confirmed oxycodone-acetaminophen 5 mg-325 1 tablet PO Q6H PRN Pain, Moderate 03/02/20 04/28/22 mg tablet doxycycline hyclate 100 mg capsule 100 mg PO BID 04/28/22 04/28/22 Allergies Allergy/AdvReac Type Severity Reaction Status Date / Time No Known Allergies Allergy Verified 08/24/22 07:48 Review of Systems Review of Systems: All systems reviewed & are unremarkable except as noted in HPI and below PMFSH Past Medical History Medical History Adenomatous colon polyp Alcoholism COPD (chronic obstructive pulmonary disease) Gastric ulcer GERD (gastroesophageal reflux disease) Nicotine dependence, unspecified, uncomplicated Obesity Osteoarthritis of left shoulder Tobacco abuse Vitamin D deficiency Surgical History Surgical History H/O colonoscopy H/O esophagogastroduodenoscopy Family History Family History Mother Family history of diabetes mellitus in first degree relative Social History Social History Smoking status: Unknown if ever smoked Tobacco type: cigarettes Second hand tobacco smoke exposure: No Smoking end date: 05/14/13 Additional smoking assessment comments: CURRENTLY ON CHANTIX -DOWN TO 1 PACK FOR 2 WEEKS Alcohol intake: never Alcohol use details: AA FOR PAST 7 YEARS Substance use: never Substance use type: does not use Lack of Transportation: No Lack of Food: Never True Current Housing: I Have Housing Concerned About Future Housing: No Difficulty Paying Gas/Electric Bills: No Difficulty Paying for Meds: No Currently Unemployed: No Education: High School Diploma/GED Difficulty w/ Childcare or Family Care: No Living arrangements: with family Spiritual care concerns: No Exam Narrative: General appearance: Well-developed, well-nourished Skin: Normal color Head: Normocephalic, nontraumatic Eyes: Clear conjunctiva ENT: Oropharynx normal, ears normal, nose normal Neck: Supple, nontender Chest and respiratory: Airway patent, no respiratory distress, no accessory muscle use Heart: Regular rate/rhythm Abdomen: Soft, nontender, no organomegaly, quiet bowel sounds Vascular: Normal peripheral pulses, normal capillary refill. Musculoskeletal: Left shoulder examination showed slight tenderness posteriorly, no warmth, no erythema, no swelling, moderate limited range of motion, cracking sound Neurologic: Alert and oriented ?3, CHEMISTS is normal as tested, no gross motor deficit Course Vital Signs Vital signs: Vital Signs Temperature 36.9 C 08/24/22 07:44 Pulse Rate 65 08/24/22 07:44 Respiratory Rate 20 08/24/22 07:44 Blood Pressure 142/68 H 08/24/22 07:44 Pulse Oximetry 100 08/24/22 07:44 Oxygen Delivery Room Air 08/24/22 0
[2022-08-24] MEDS: IBUPROFEN 600 MG TABLET PO (08:20)
[2022-08-24] MEDS: ACETAMINOPHEN 325 MG TABLET 650 MG PO (08:20)
== END 2022-08-24 08:38 | disposition home or self-care (01) ==
PROVIDERS: Emergency Provider Emergency Medicine
DX: M25.512 Pain in left shoulder (principal); G89.29 Other chronic pain; J44.9 Chronic obstructive pulmonary disease, unspecified; K21.9 Gastro-esophageal reflux disease without esophagitis; M19.012 Primary osteoarthritis, left shoulder; E55.9 Vitamin D deficiency, unspecified; E66.9 Obesity, unspecified; Z68.34 Body mass index [BMI] 34.0-34.9, adult; Z86.010 Personal history of colon polyps
CPT/HCPCS: 73030; 99283; A9270

== ENCOUNTER → 2022-09-20 07:56 | Outpatient (CLI) | payer BC, MEDICARE, SELFPAY ==
--- NOTE | ~2022-09-20 | MR_ITS ---
MRI of the left shoulder Technique: Axial proton-density fat-sat images, coronal proton density fat-sat and T2 fat-sat images, and sagittal T1-weighted and T2 fat-sat images were acquired. Clinical History: Pain Findings: There is severe AC joint degenerative change. Coracoclavicular, coracoacromial, coracohumer al ligaments are intact. Supraspinatus and infraspinatus tendons appear intact, without definite partial or full-thickness tea r. There is mild to moderate tendinosis of these tendons distally. Subscapularis tendon is intact, wi th mild to moderate tendinosis. Tendon of long head of the biceps appears to be markedly thinned but otherwise intact. There is probable degenerative attenuation of the superior labrum. Degenerative tearing likely extend s to the anterosuperior and anterior posterior portions. There is probable tear at the inferior labru m. Inferior glenohumeral ligament is intact. There are small glenohumeral joint effusion. There is mild chondromalacia of the glenohumeral joint. No fluid distention of the subacromial/subdeltoid bursa. No muscle atrophy or edema identified. Impression: Marked thinning of the biceps tendon versus possible complete rupture and retraction. Correlate with physical exam patient's symptomatology. Probable degenerative SLAP tear of the labrum. Rotator cuff tendinosis, as noted above. Severe AC joint degenerative change. Reviewed, dictated and finalized at [facility]. Impression: Marked thinning of the biceps tendon versus possible complete rupture and retra ction. Correlate with physical exam patient's symptomatology. Probable degenerative SLAP tear of the labrum. Rotator cuff tendinosis, as noted above. Severe AC joint degenerative change.
== END ==
PROVIDERS: PCP Physician Assistant Surgical; Visit Provider Physician Assistant Surgical
DX: M19.012 Primary osteoarthritis, left shoulder (principal)
CPT/HCPCS: 73221

== ENCOUNTER 2024-03-11 09:20 | Emergency (ER) | payer BC, MEDICARE, SELFPAY | END 2024-03-11 09:21 | disposition left against medical advice (07) | LOC: ANHED 03-12 02:52 | PROVIDERS: PCP Nurse Practitioner Family | DX: Z53.21 Procedure and treatment not carried out due to patient leaving prior to being seen by health care provider (principal) | CPT/HCPCS: 99199 ==

== ENCOUNTER 2024-06-09 16:09 | Emergency (ER) | payer MEDICARE, SELFPAY ==
--- NOTE | ~2024-06-09 | CT_ITS ---
EXAMINATION: CT abdomen pelvis wo con DATE: 06/09/2024 18:29 INDICATION: Left flank and abdominal pain. Hematuria. TECHNIQUE: Computed tomography (CT) of the abdomen and pelvis was performed without intravenous contr ast. Automated exposure control and iterative reconstruction technique were employed. The dose-length product was 1238.14 mGy-cm. COMPARISON: CT abdomen and pelvis 08/19/2019 FINDINGS: The visualized portions of lung bases demonstrate mild atelectasis. No pleural effusion. Th e heart size is normal. No pericardial effusion. There is a small sliding hiatal hernia. There are cy sts in the liver measuring up to 17 mm. The gallbladder, spleen, pancreas, and adrenal glands are nor mal. There are cysts in right kidney measuring up to 14 mm. There is a 20 mm cyst in left kidney. The re is mild left hydronephrosis and hydroureter. There is a 2 mm stone in distal left ureter. The pros castaneda is mildly enlarged. There are bilateral inguinal hernias containing fat. There are no dilated lo ops of bowel. The appendix is normal. There are no pathologically enlarged lymph nodes. There is no f ree intraperitoneal fluid. There are old right rib fractures. There is moderate lumbar spondylosis. IMPRESSION: 1. 2 mm stone in distal left ureter with mild left hydronephrosis and hydroureter. Reviewed, dictated and finalized at location A. WALL ENGINEER IMPRESSION: 1. 2 mm stone in distal left ureter with mild left hydronephrosis and hydrouret er.
--- NOTE | ~2024-06-09 | CT_ITS ---
EXAMINATION: CT brain wo con DATE: 06/09/2024 18:29 INDICATION: Dizziness. TECHNIQUE: Computed tomography (CT) of the head was performed without intravenous contrast. The mA wa s adjusted according to patient size. Iterative reconstruction technique was employed. The dose-lengt h product was 681.00 mGy-cm. COMPARISON: None FINDINGS: There is no intracranial hemorrhage, acute infarction, or abnormal intracranial mass lesion . The ventricles are normal in size. The orbits are normal. There is mild mucosal thickening in the p aranasal sinuses. The mastoid air cells are normal. IMPRESSION: 1. Normal brain. Reviewed, dictated and finalized at location A. ING HEAD TENDER IMPRESSION: 1. Normal brain.
[2024-06-09 16:36] VITALS: BP 172/106; PULSE 67; RESP 18; TEMP 36.8; O2SAT 99
--- OUTSIDE RECORDS SUMMARY | 2024-06-09 16:40 | XMS_ITS | Clinical Summary ---
Author Organization [facility] Address [address] [place] [address] Care Team Providers Care Advisor Consultant Name Role Phone Niki Hinds MD Primary Care Provider [phone] Allergies No known active allergies Medications hydroCHLOROthiaz cecile (HYDRODIURIL) 12.5 mg tablet Take 12.5 mg by mouth daily 2 Active cholecalciferol (VITAMIN D-3) 2000 unit tablet Take 2,000 Units by mouth daily 2 Active oxyCODONE-acetam inophen (PERCOCET) 5-325 mg per tablet Take 1 tablet by mouth every 8 (eight) hours as needed Active rosuvastatin (CRESTOR) 10 mg tablet Take 10 mg by mouth nightly at bedtime [address] (PROTONIX) 40 mg EC tablet Take 40 mg by mouth daily Active Anoro Ellipta 62.5-25 mcg/actuation blister with device Inhale 1 puff daily 3 Active buPROPion XL (WELLBUTRIN XL) 150 mg 24 hr tablet Take 1 tablet (150 mg total) by mouth 2 (two) times a day 3 Active clobetasoL (TEMOVATE) 0.05 % ointmentIndicati ons:Rash and nonspecific skin eruption APPLY TOPICALLY DAILY USE DAILY FOR ITCHY RASH ON STOMACH FOR 3 WEEKS, THEN DECREASE TO TWICE WEEKLY ON WEEKENDS 45 g 3 3 Active clindamycin (CLEOCIN T) 1 % lotionIndication s:Hidradenitis suppurativa Apply topically 2 (two) times a day To infected areas 60 mL 6 4 Active doxycycline (doxycycline hyclate) 100 mg capsuleIndicatio ns:Hidradenitis suppurativa Take 1 tablet/capsule (100 mg total) by mouth 2 (two) times a day With food and full glass of water 60 capsule 6 4 Active Active Problems No known active problems Social History Tobacco Use Types Packs/Day Years Used Date Smoking Tobacco: Every Day Cigarettes 0.4 52 Smokeless Tobacco: Never Tobacco Cessation:Ready to Q uit: Not Asked; Counseling Given: Not Answered Sex and Gender Information Value Date Recorded Sex Assigned at Not on file Legal Sex Male 1:11 AM HEEL SEAT FILLER Gender Identity Not on file Sexual Orientation Not on file Obstetrics History Plan of Treatment Health Maintenance Due Date Last Done Comments Colon Cancer Screening-Colonoscopy 1955 Depression Screening 1955 Fall Risk Assessment 1955 Hepatitis C Screening 1955 Prostate Cancer Screening-PSA 1955 DTaP/Tdap/Td Vaccine (1 - Tdap) 12/09/1966 Hepatitis B Screening 12/09/1973 Lung Cancer Screening 12/09/2005 Pneumococcal vaccine 65+ (2 of 2 - PCV) 06/05/2014 06/05/2013 Well Visit 65+ 12/09/2020 Zoster Vaccine (2 of 2) 04/28/2021 03/03/2021 Covid-19 Vaccine (4 - 2023-2 5 season) 2024 03/03/2021, 08/11/2020, 07/21/2020 Influenza Vaccine (#1) 2024 , 04/19/2018, 06/05/2013, Additional history exists Abdominal Aortic Aneurysm (A AA) Screen Completed 02/16/2021 Insurance [facility] [employer] MEDICARE ADV Care Teams Advisor Consultant Relationship Specialty Start Date End Date Niki Hinds MD [address] [place] [address] PCP - General 03/27/11
--- OUTSIDE RECORDS SUMMARY | 2024-06-09 16:40 | XMS_ITS | Referral Summary ---
Author Organization [facility] Address [address] [place] [address] Care Team Providers Care Line Installer Trolley Name Role Phone Niki Hinds MD Primary Care Provider [phone] Allergies No known active allergies Medications hydroCHLOROthiaz [...] on file Legal Sex Male 1:11 AM DYNAMITER Gender Identity Not on file Sexual Orientation Not on file Plan of Treatment Not on file Insurance [employer] [place] [employer] MEDICARE ADV Care Teams Line Installer Trolley Relationship Specialty Start Date End Date Niki Hinds MD [address] [place] [address] PCP - General 03/27/11
--- OUTSIDE RECORDS SUMMARY | 2024-06-09 16:40 | XMS_ITS | Clinical Summary ---
Author Organization [facility] Address [address] [place] [address]. [place], [place] [address] [place] [id number] Care Team Providers Care Hydraulic Jack Operator Name Role Phone Scott Fuller MD Primary Care Provider [phone] Allergies No known active allergies Medications rosuvastatin 10 MG tablet Take 10 mg by mouth nightly at bedtime. 11/29/2020 Active Cholecalciferol (VITAMIN D) 50 MCG (1999) Tab Take 2,000 Units by mouth daily. Active ANORO ELLIPTA 62.5-25 MCG/INH inhaler 02/14/2021 Active oxyCODONE-aceta minophen 5-325 MG tablet Take 1 tablet by mouth every 8 (eight) hours as needed for Pain. Active Social History Tobacco Use Types Packs/Day Years Used Date Smoking Tobacco: Every Day Cigarettes 0.3 45 Smokeless Tobacco: Never Alcohol Use Standard Drinks/Week Comments Not Currently 0 (1 standard drink = 0.6 oz pur e alcohol) Sex and Gender Information Value Date Recorded Sex Assigned at Not on file Legal Sex Male 5:54 PM CDT Gender Identity Not on file Sexual Orientation Not on file Last Filed Vital Signs Vital Sign Reading Time Taken Comments Blood Pressure 111/67 07/01/2021 10:35 AM MEMBERSHIP DIRECTOR Pulse 62 07/01/2021 10:35 AM MEMBERSHIP DIRECTOR Temperature 36.8 ??C (98.2 ??F) 07/01/2021 10:[address] Respiratory Rate 21 07/01/2021 10:35 AM MEMBERSHIP DIRECTOR Oxygen Saturation 98% 07/01/2021 10:35 AM MEMBERSHIP DIRECTOR Inhaled Oxygen Concentration - - Weight 108 kg (238 lb) 07/01/2021 9:43 AM MEMBERSHIP DIRECTOR Height 175.3 cm (5' 9 ) 07/01/2021 9:43 AM MEMBERSHIP DIRECTOR Body Mass Index 35.15 07/01/2021 9:43 AM MEMBERSHIP DIRECTOR Plan of Treatment Health Maintenance Due Date Last Done Comments Colorectal Cancer Screening Colonoscopy (10 Years) 1955 Pneumococcal Vaccine: 65+ Years (1 of 2 - PCV) 12/09/1961 Hepatitis C 12/09/1973 DTaP, Tdap and Td Vaccines ( 1 - Tdap) 12/09/1974 Zoster Vaccines (1 of 2) 12/09/2005 Annual Medicare Wellness Visit 12/09/2020 COVID-19 Vaccine (3 - 2023-2 5 season) 2024 08/11/2020, 07/21/2020 Influenza Adult (#1) 2024 04/19/2018 RSV Immunization or 60+ Years (1 - 1-dose 75+ series) 12/09/2030 Meningococcal B Vaccine Aged Out No l onger eligible based on patient's age to complete this topic Meningococcal Vaccine Aged Out No marycruz scot eligible based on patient's age to complete this topic RSV Immunizations Under 20 Months Aged Out No longer eligible b ased on patient's age to complete this topic Insurance MEDICARE Care Teams Hydraulic Jack Operator Relationship Specialty Start Date End Date Scott Fuller MD [address] [place] [address] PCP - General INTERNAL MEDICINE 02/16/21
--- OUTSIDE RECORDS SUMMARY | 2024-06-09 16:40 | XMS_ITS | Clinical Summary ---
Author Organization [facility] Address [address] [address] Phone Care Team Providers Care Table Assembler Metal Name Role Phone Scott Fuller MD Primary Care Provider [phone] Social History Tobacco Use Types Packs/Day Years Used Date Smoking Tobacco: Never Assessed Sex and Gender Information Value Date Recorded Sex Assigned at Not on file Legal Sex Male 9:07 PM CDT Gender Identity Not on file Sexual Orientation Not on file Plan of Treatment Health Maintenance Due Date Last Done Comments Hepatitis C Virus (HCV) Screening 1955 TdaP Immunization 1955 Cologuard 12/09/2005 Immunochemical Fecal Occult Blood 12/09/2005 Pneumococcal Immunization (5 0+ years) (1 of 1 - PCV) 12/09/2005 Zoster Immunization (1 of 2) 12/09/2005 PSA Discussion 12/09/2010 Influenza Immunization (#1) 2024 SARS-COV-2 Immunization ( - season) 2024 Colonoscopy 04/01/2025 04/01/2020 Colorectal Cancer Screening 04/01/2025 Respiratory Syncytial Virus (RSV) Immunization (Adult) (1 - 1-dose 75+ series) 12/09/2030 04/01/2020 Hepatitis B Immunization Aged Out No longer eligible based on patient's age to complete this topic Meningococcal Immunization (ACWY) Aged Out No longer eligible based on patient's age to complete this topic Rotavirus Immunization Aged Out No lo nger eligible based on patient's age to complete this topic Procedures Procedure Name Priority Date/Time Associated Diagnosis Comments COLONOSCOPY Routine 04/01/2020 from Last 3 Months or Most Recently Relevant to Health Maintenance Results * HM COLONOSCOPY (04/01/2020) Ernst Bre Watson DO PROCEDURE/MINOR SURGICAL ORDERA BLES Final Result from Last 3 Months or Most Recently Relevant to Health Maintenance Insurance [facility] MEDICARE Care Teams Table Assembler Metal Relationship Specialty Start Date End Date Scott Fuller MD [address] [place] [address] PCP - General Internal Medicine 04/05/20
--- NOTE | 2024-06-09 17:22 | ED_ITS ---
HPI - Abdominal Pain General Chief Complaint: Abdominal Pain Stated Complaint: L ABD PAIN, HEMATURIA,DIFF URINATION Time Seen by Provider: 06/09/24 17:22 Focused HPI: Patient is a 68 y/o male who presents to the ED with c/o L flank pain. Patient reports he had difficulty urinating around 3pm this afternoon. States he was only able to void/ squirt out small amount of urine and his urine was pink tinged at that time. Began having pain in his L lower abdomen, L flank region. States he feels groggy, has been feeling dizzy and lightheaded. States he has had trouble walking. Denies N/V. Denies fevers. Denies focal weakness or numbness. GENERAL: Well-appearing, well-nourished, and in no acute distress. HEAD: Normocephalic, atraumatic. CHEST: Clear to auscultation. ?No respiratory distress. HEART: Regular rate and rhythm.? ABD: TTP in LLQ, L mid abdomen. Normoactive BS NEURO: ?Alert and oriented x3. No focal deficits. No pronator drift. Patient screened in triage and initial orders placed.? ?Additional care and disposition to be based upon?diagnostic testing and treatment. Source: patient Mode of arrival: ambulatory Limitations: no limitations History of Present Illness HPI narrative: Patient is a 68 y/o male who presents to the ED with c/o L flank pain. Patient reports he had difficulty urinating around 3pm this afternoon. States he was only able to void/ squirt out small amount of urine and his urine was pink tinged at that time. Began having pain in his L lower abdomen, L flank region. States he feels groggy, has been feeling dizzy and lightheaded. States he has had trouble walking. Denies N/V. Denies fevers. Denies focal weakness or numbness. Related Data Home Medications ?Medication ?Instructions ?Recorded ?Confirmed ?Last Taken ?Type oxycodone-acetaminophen 5 mg-325 1 tablet PO Q6H PRN Pain, Moderate 03/02/20 05/23/24 03/31/20 06:00 History mg tablet doxycycline hyclate 100 mg capsule 100 mg PO BID 08/16/23 05/23/24 Unknown History Allergies Allergy/AdvReac Type Severity Reaction Status Date / Time No Known Allergies Allergy Verified 06/09/24 16:39 Review of Systems 2 Review of Systems: All systems reviewed & are unremarkable except as noted in HPI. All systems reviewed & are unremarkable except as noted in HPI and below PMFSH Past Medical History Medical History Depression Labral tear of shoulder, degenerative Biceps tendinosis of left shoulder Impingement syndrome of left shoulder Arthritis of left glenohumeral joint Osteoarthritis of left shoulder Left shoulder pain Alcoholism Nicotine dependence, unspecified, uncomplicated intermediate project manager use of drug Adenomatous colon polyp Gastric ulcer GERD (gastroesophageal reflux disease) Vitamin D deficiency Tobacco abuse Obesity COPD (chronic obstructive pulmonary disease) Osteoarthritis Gastro-esophageal reflux disease without esophagitis Surgical History Surgical History H/O colonoscopy H/O esophagogastroduodenoscopy Family History Family History Mother Family history of diabetes mellitus in first degree relative Social History Social History Smoking packs per day: 0.42 Smoking cigarettes per day: 8.4 Smoking status: Current every day smoker Tobacco type: cigarettes Second hand tobacco smoke exposure: No Additional smoking assessment comments: CURRENTLY ON CHANTIX -DOWN TO 1 PACK FOR week Alcohol intake: never Alcohol use details: AA FOR PAST 7 YEARS Substance use: never Substance use type: does not use Do You Feel Safe in your Home?: Yes Lack of Transportation: No Lack of Food: Never True Current Housing: I Have Housing Concerned About Future Housing: No Difficulty Paying Gas/Electric Bills: No Difficulty Paying for Meds: No Currently Unemployed: No Education: High School Diploma/GED Difficulty w/ Childcare or Family Care: No Living arrangements: with family Occupation/Education: retired Gender identity (if verbalized by the patient): Male Sexual Orientation (if Verbalized by the Patient): Straight or Heterosexual Spiritual care concerns: No Agree to blood products: Yes Exam 2 Narrative: GENERAL: Well-appearing, obese with BMI of 34.9, and in no acute distress. HEAD: Normocephalic, atraumatic. CHEST: Clear to auscultation. ?No respiratory distress. HEART: Regular rate and rhythm.? No murmurs. Peripheral pulses intact. ABD: TTP in LLQ, L mid abdomen. Normoactive BS MUSCULOSKELETAL: Moves all extremities. No gross deformities. SKIN: Warm, dry, normal color. NEURO: ?Alert and oriented x3. No focal deficits. No pronator drift. Strength 5/5 in upper and lower extremities julio c PSYCHIATRIC: Appropriate mood and affect. Normal interaction. Course Vital Signs Vital signs: Vital Signs Temperature 98.2 F 06/09/24 16:36 Pulse Rate 67 06/09/24 16:36 Respiratory Rate 18 06/09/24 16:36 Blood Pressure 172/106 H 06/09/24 16:36 Pulse Oximetry 99 06/09/24 16:36 Oxygen Delivery Room Air 06/09/24 16:36 Temperature 98.2 F 06/09/24 16:36 Pulse Rate 71 06/09/24 21:08 Respiratory Rate 15 06/09/24 21:08 Blood Pressure 158/96 H 06/09/24 21:08 Pulse Oximetry 100 06/09/24 21:08 Oxygen Delivery Room Air 06/09/24 16:36 MDM - Abdominal Pain MDM Narrative Medical decision making narrative: MSE by DEAN in triage. Care resumed by myself. Patient presented to ED with sudden onset of L lower abd pain this afternoon, dysuria, hematuria. No previous hx of kidney stones. Patient did report feeling somewhat dizzy and lightheaded. He felt like this was related to pain. He was neurologically intact upon my examination. CT brain was obtained and unremarkable. Fluids were initiated. Laboratory studies are also fairly unremarkable. No leukocytosis or anemia. Stable kidney function. Normal lactic acid. UA with large amount of blood, no signs of infection. CT scan of abdomen/pelvis obtained: 2 mm stone in distal left ureter with mild left hydronephrosis and hydroureter. Consistent with clinical history and exam. This is patient's 1st kidney stone. Pain is controlled at this time with supportive therapy in the ED. Patient felt to be stable for discharge home with outpatient urology follow-up. He is in agreement with this plan. Feels comfortable going home. He has oxycodone at home from a previous knee injury that he can take. Prescribed Flomax and Zofran for home use. Will refer to Urology for further eval. Discussed likelihood of patient passing stone on his own. Discussed strict return precautions. He agrees with plan. Discharged in stable condition. Medical Records Attestation: I reviewed the patient's medical records. Lab Data Attestation: I reviewed the patient's lab results. 06/09/24 17:34 06/09/24 17:34 Labs: Lab Results 06/09/24 06/09/24 Range/Units 17:34 21:01 WBC 7.1 (4.5-10.0) K/mm3 RBC 4.93 (4.6-6.20) M/mm3 Hgb 15.2 D (14.0-18.0) g/dL Hct 44.7 (42.0-52.0) % MCV 90.7 (80-100) fl MCH 30.8 (26-34) pg MCHC 34.0 (32-36) g/dl RDW 12.8 (11.5-14.5) % Plt Count 219 (150-375) k/mm3 MPV 9.6 (7.4-10.4) fl Immature Gran % (Auto) 0.3 (0-0.5) % Neut % (Auto) 70.1 (45.5-73.1) % Lymph % (Auto) 14.3 L (18.3-44.2) % [place] % (Auto) 9.3 H (2.6-8.5) % Eos % (Auto) 5.2 H (0-4.4) % Baso % (Auto) 0.8 (0.2-1.2) % Lymph # (Auto) 1.01 (0.9-3.2) K/mm3 Chester # (Auto) 0.7 H (0.1-0.6) K/mm3 Eos # (Auto) 0.4 H (0-0.3) K/mm3 Baso # (Auto) 0.1 (0.0-0.1) K/mm3 Abs Immat Gran (auto) 0.02 (0.00-0.031) K/mm3 Absolute Neuts (auto) 4.9 (1.3-6.7) K/mm3 Absolute Nucleated RBC 0.000 (0.0-0.012) K/mm3 Nucleated RBC % 0.0 (0.0-0.2) % Sodium 139 (137-145) mmol/L Potassium 4.4 (3.4-5.0) mmol/L Chloride 106 (98-107) mmol/L Carbon Dioxide 25 (22-30) mmol/L Anion Gap 8 (4-12) mmol/L BUN 20 (9-20) mg/dL Creatinine 1.03 (0.7-1.3) mg/dL Estim Creat Clear Calc 73 ml/min Estimated GFR > 60 (59 - ) Glucose 100 (65-110) mg/dL Lactic Acid 0.9 (0.7-2.0) mmol/L Calcium 9.4 (8.4-10.2) mg/dL Total Bilirubin 1.0 (0.2-1.3) mg/dL AST 18 (17-59) U/L ALT 14 (6-50) U/L Alkaline Phosphatase 68 (38-126) U/L Total Protein 8.0 (6.3-8.2) g/dL Albumin 4.2 (3.5-5.1) g/dL Urine Color Dark yellow (Yellow) Urine Appearance Turbid H (Clear) Urine pH 5.5 (5.0-9.0) Ur Specific [place] 1.023 (1.001-1.035) Urine Protein 1+ H (Negative) mg/dL Urine Glucose (UA) Negative (Negative) mg/dL Urine Ketones Negative (Negative) mg/dL Ur Blood (Man) 3+ H (Negative) Urine Nitrate Negative (Negative) Urine Bilirubin Negative (Negative) Urine Urobilinogen 1.0 (<2.0) mg/dL Leukocyte Esterase Rfl Trace H (Negative) JESUS/UL Urine RBC >100 H (0-2) /hpf Urine WBC 0-5 (0-3) /hpf Ur Squamous Epith Cells None seen (Few) /hpf Calcium Oxalate Crystal Present (None) /hpf Urine Bacteria None seen /hpf Urine Casts 0-2 Imaging Data Attestation: I personally reviewed and interpreted this imaging study as follows: Radiologist's impression: ITS Impressions Head CT 06/09/24 18:29 IMPRESSION: 1. Normal brain. Abdomen/Pelvis CT 06/09/24 18:31 IMPRESSION: 1. 2 mm stone in distal left ureter with mild left hydronephrosis and hydroureter. Discharge Plan Discharge Clinical Impression: Calculus of distal left ureter Patient Disposition: Home, Self-Care Condition: Stable Instructions: Antibiotic Form, Kidney Stones (ED), How to Strain Your Urine (ED), Flank Pain (ED) Additional Instructions: Take Flomax daily as prescribed. Continue Tylenol and Ibuprofen as needed for pain. Utilize your home oxycodone as needed for more severe pain. Zofran for nausea. Stay well hydrated. Strain urine to collect stone. Follow up with your primary care doctor and Urology for further care. Call offices to make appointments. Return to the ED if you experience worsening or severe pain, unable to keep down food/drink, fevers, uncontrollable nausea/vomiting, unable to urinate, severe blood in urine, or any other symptoms of concern. Patient Language: Citizen Of [place] Prescriptions: New tamsulosin [Flomax] 0.4 mg capsule 0.4 mg PO DAILY Qty: 7 0RF ondansetron 4 mg tablet,disintegrating 4 mg PO Q8H PRN (Reason: nausea and vomiting) Qty: 15 0RF No Action doxycycline hyclate 100 mg capsule 100 mg PO BID oxycodone-acetaminophen 5-325 mg tablet 1 tablet PO Q6H PRN (Reason: Pain, Moderate) cholecalciferol (vitamin D3) 25 mcg (1,000 unit) capsule 25 mcg PO DAILY Qty: 90 1RF rosuvastatin [Crestor] 10 mg tablet 10 mg PO DAILY Qty: 90 1RF Rx Instructions: Take 1 tablet at bedtime. albuterol sulfate 90 mcg/actuation HFA aerosol inhaler See Rx Instructions .ROUTE .COMPLEX Qty: 8.5 5RF Dose Instruction: INHALE 1 PUFF INTO THE LUNGS EVERY 4 HRS NEEDED FOR SHORTNESS OF BREATH OR WHEEZING Rx Instructions: INHALE 1 PUFF INTO THE LUNGS EVERY 4 HRS NEEDED FOR SHORTNESS OF BREATH OR WHEEZING Trelegy Ellipta 100-62.5-25 mcg blister with device 1 inh inhalation DAILY Qty: 60 2RF Follow-up/Referrals: Shauna Clarke APRN [Primary Care Provider] - Neo Ramirez MD [Physician] - (UROLOGY) Time of Disposition: 21:37
[2024-06-09 17:43] LABS: Basophils Absolute Auto 0.1 K/mm3 (0.0-0.1); Basophils Percent Auto 0.8 % (0.2-1.2); Eosinophils Absolute Auto 0.4 K/mm3 (0-0.3); Eosinophils Percent Auto 5.2 % (0-4.4); Hematocrit 44.7 % (42.0-52.0); Hemoglobin 15.2 g/dL (14.0-18.0); Immature Granulocyte Absolute 0.02 K/mm3 (0.00-0.031); Immature Granulocyte Percent A 0.3 % (0-0.5); Lymphocytes Absolute Auto 1.01 K/mm3 (0.9-3.2); Lymphocytes Percent Auto 14.3 % (18.3-44.2); Mean Corpuscular Hemoglobin 30.8 pg (26-34); Mean Corpuscular Volume 90.7 fl (80-100); Mean Platelet Volume 9.6 fl (7.4-10.4); Monocytes Absolute Auto 0.7 K/mm3 (0.1-0.6); Monocytes Percent Auto 9.3 % (2.6-8.5); Neutrophils Absolute Auto 4.9 K/mm3 (1.3-6.7); Neutrophils Percent Auto 70.1 % (45.5-73.1); Platelet Count Result 219 k/mm3 (150-375); Red Blood Count 4.93 M/mm3 (4.6-6.20); Red Cell Distribution Width 12.8 % (11.5-14.5); White Blood Count 7.1 K/mm3 (4.5-10.0)
[2024-06-09 17:56] LABS: Alanine Aminotransferase 14 U/L (6-50); Albumin Level 4.2 g/dL (3.5-5.1); Alkaline Phosphatase 68 U/L (38-126); Anion Gap 8 mmol/L (4-12); Aspartate Amino Transferase 18 U/L (17-59); Blood Urea Nitrogen 20 mg/dL (9-20); Calcium 9.4 mg/dL (8.4-10.2); Carbon Dioxide 25 mmol/L (22-30); Chloride 106 mmol/L (98-107); Estimated CRCL calculation 73 ml/min; Estimated Glomerular Filt Rate > 60; Glucose 100 mg/dL (65-110); Lactic Acid Reflex 0.9 mmol/L (0.7-2.0); Potassium 4.4 mmol/L (3.4-5.0); Sodium 139 mmol/L (137-145)
--- OUTSIDE RECORDS SUMMARY | 2024-06-09 20:38 | XMS_ITS | Referral Summary ---
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
--- OUTSIDE RECORDS SUMMARY | 2024-06-09 20:38 | XMS_ITS | Clinical Summary ---
Author Organization [facility] Address [address] [address] Phone Care Team Providers Care Bobbin Cleaning Machine Operator Name Role Phone Scott Fuller MD Primary Care Provider [phone] Social History Tobacco Use Types Packs/Day Years [...] Most Recently Relevant to Health Maintenance Insurance [facility] MEDICARE Care Teams Bobbin Cleaning Machine Operator Relationship Specialty Start Date End Date Scott Fuller MD [address], [address] [place] [address] PCP - General Internal Medicine 04/05/20
--- OUTSIDE RECORDS SUMMARY | 2024-06-09 20:38 | XMS_ITS | Clinical Summary ---
Author Organization [facility] Address [address] [place] [address]. [place], [place] [id number] [place] [id number] Care Team Providers Care Corporate Job Titles Name Role Phone Scott Fuller MD Primary Care Provider [phone] Allergies No known active allergies Medications rosuvastatin [...] Comments Blood Pressure 111/67 07/01/2021 10:35 AM FIVE PIECE EXPANSION MAKER HAND Pulse 62 07/01/2021 10:35 AM FIVE PIECE EXPANSION MAKER HAND Temperature 36.8 ??C (98.2 ??F) 07/01/2021 10:[address] Respiratory Rate 21 07/01/2021 10:35 AM FIVE PIECE EXPANSION MAKER HAND Oxygen Saturation 98% 07/01/2021 10:35 AM FIVE PIECE EXPANSION MAKER HAND Inhaled Oxygen Concentration - - Weight 108 kg (238 lb) 07/01/2021 9:43 AM FIVE PIECE EXPANSION MAKER HAND Height 175.3 cm (5' 9 ) 07/01/2021 9:43 AM FIVE PIECE EXPANSION MAKER HAND Body Mass Index 35.15 07/01/2021 9:43 AM FIVE PIECE EXPANSION MAKER HAND Plan of Treatment Health Maintenance Due Date [...] complete this topic Insurance MEDICARE Care Teams Corporate Job Titles Relationship Specialty Start Date End Date Scott Fuller MD [address] [place] [address] PCP - General INTERNAL MEDICINE 02/16/21
--- OUTSIDE RECORDS SUMMARY | 2024-06-09 20:38 | XMS_ITS | Clinical Summary ---
Author Organization 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
[2024-06-09] MEDS: SODIUM CHLORIDE 0.9% IV 1,000 ML 999 ML IV CONT (21:00)
[2024-06-09] MEDS: TAMSULOSIN HCL 0.4 MG CAPSULE PO (21:00)
[2024-06-09] MEDS: HYDROcodone/acetaminophen (*CRX) 5-325 MG TABLET 1 TAB PO (21:06)
[2024-06-09 21:08] VITALS: BP 158/96; PULSE 71; RESP 15; O2SAT 100
[2024-06-09 21:26] LABS: Add Urine Microscopic? YES; Appearance Urine Turbid (Clear); Bacteria Urine None Seen /hpf; Bilirubin Urine Negative (Negative); Blood Urine 3+ (Negative); Calcium Oxalate Crystals Urine Present /hpf; Color Urine Dark Yellow (Yellow); Glucose Urine UA Negative (Negative); Ketones Urine Negative (Negative); Leukocyte Esterase Ur Trace LEU/UL (Negative); Nitrate Urine Negative (Negative); Non Pathogenic Casts 0-2; Protein Urine 1+ mg/dL (Negative); RBC Urine >100 /hpf (0-2); Specific Grav Ur 1.023 (1.001-1.035); Squamous Epithelial Cell Urine None Seen /hpf (Few); WBC Urine 0-5 /hpf (0-3); pH Urine 5.5 (5.0-9.0)
[2024-06-09 22:17] VITALS: BP 144/74; PULSE 73; RESP 16; O2SAT 99
== END 2024-06-09 22:17 | disposition home or self-care (01) ==
PROVIDERS: Emergency Provider Physician Assistant; PCP Nurse Practitioner Family
DX: N20.1 Calculus of ureter (principal); F10.20 Alcohol dependence, uncomplicated; K21.9 Gastro-esophageal reflux disease without esophagitis; E55.9 Vitamin D deficiency, unspecified; J44.9 Chronic obstructive pulmonary disease, unspecified; F17.210 Nicotine dependence, cigarettes, uncomplicated
CPT/HCPCS: 36415; 70450; 74176; 80053; 81001; 83605; 85025; 96360; 99284; A9270; J7030

== ENCOUNTER 2024-06-20 09:35 | Outpatient (CLI) | payer BC, MEDICARE, SELFPAY ==
--- NOTE | ~2024-06-20 | XR_ITS ---
CHEST RADIOGRAPH, PA AND LATERAL CLINICAL HISTORY: R06.02 - Shortness of breath . COMPARISON: 02/14/2021 TECHNIQUE: PA and lateral views of the chest. FINDINGS The cardiomediastinal silhouette is unremarkable. The lungs are clear. Visualized osseous structures and soft tissues are unremarkable. IMPRESSION: No focal infiltrate or effusion. Reviewed, dictated and finalized at location A. CLERK
--- OUTSIDE RECORDS SUMMARY | 2024-06-20 10:20 | XMS_ITS | Clinical Summary ---
Author Organization [facility] Address [address] [address] Phone Care Team Providers Care Sheet Metal Helper Name Role Phone Scott Fuller MD Primary Care Provider [phone] Social History Tobacco Use Types Packs/Day Years [...] Most Recently Relevant to Health Maintenance Insurance [facility] MEDICARE Care Teams Sheet Metal Helper Relationship Specialty Start Date End Date Scott Fuller MD [address], [address] [place] [address] PCP - General Internal Medicine 04/05/20
--- OUTSIDE RECORDS SUMMARY | 2024-06-20 10:20 | XMS_ITS | Clinical Summary ---
Author Organization [facility] Address [address] [place] [address] Care Team Providers Care Communications Tech Name Role Phone Scott Fuller MD Primary Care Provider [phone] Allergies No known active allergies Medications rosuvastatin [...] Comments Blood Pressure 111/67 07/01/2021 10:35 AM CRYSTAL LAPPER Pulse 62 07/01/2021 10:35 AM CRYSTAL LAPPER Temperature 36.8 C (98.2 F) 07/01/2021 10:14 AM CRYSTAL LAPPER Respiratory Rate 21 07/01/2021 10:35 AM CRYSTAL LAPPER Oxygen Saturation 98% 07/01/2021 10:35 AM CRYSTAL LAPPER Inhaled Oxygen Concentration - - Weight 108 kg (238 lb) 07/01/2021 9:43 AM CRYSTAL LAPPER Height 175.3 cm (5' 9 ) 07/01/2021 9:43 AM CRYSTAL LAPPER Body Mass Index 35.15 07/01/2021 9:43 AM CRYSTAL LAPPER Plan of Treatment Health Maintenance Due Date [...] complete this topic Insurance MEDICARE Care Teams Communications Tech Relationship Specialty Start Date End Date Scott Fuller MD [address] [place] [address] PCP - General INTERNAL MEDICINE 02/16/21
--- OUTSIDE RECORDS SUMMARY | 2024-06-20 10:20 | XMS_ITS | Clinical Summary ---
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
--- OUTSIDE RECORDS SUMMARY | 2024-06-20 10:20 | XMS_ITS | Referral Summary ---
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
== END 2024-06-20 09:36 | disposition home or self-care (01) ==
PROVIDERS: PCP Nurse Practitioner Family; Visit Provider Nurse Practitioner Family
DX: R06.02 Shortness of breath (principal); R05.9 Cough, unspecified
CPT/HCPCS: 71046